=== PATIENT | male | born 1950 | race Caucasian/White ===

== ENCOUNTER → 2021-07-25 | Day surgery (SDC) | payer OTHER | LOC: MSO 07:46 | DX: Z12.11 Encounter for screening for malignant neoplasm of colon (principal); D12.5 Benign neoplasm of sigmoid colon; D12.3 Benign neoplasm of transverse colon; K57.30 Diverticulosis of large intestine without perforation or abscess without bleeding; F17.210 Nicotine dependence, cigarettes, uncomplicated | CPT/HCPCS: 00811; J2704; J7120 ==